=== PATIENT | female | born 1980 | race Caucasian/White ===

== ENCOUNTER 2020-08-28 12:15 | Inpatient (IN) | payer OTHER ==
[~2020-08-28] VITALS: Ht 154.9 cm; Wt 83.9 kg
[2020-08-28] MEDS ORDERED: AVAPRO300 MG PO (17:42)
[2020-08-30] MEDS ORDERED: FUSION PLUS CA1 EACH (08:13)
== END 2020-08-31 17:39 | disposition home or self-care (01) | DRG 741 ==
LOC: O/R 08-29 06:15 → SURH 08-29 10:00 → OB/GYN 08-29 23:33
PROVIDERS: ADMIT Specialist; ATTEND Specialist
PROC: 0UT20ZZ Resection of Bilateral Ovaries, Open Approach (ICD-10-PCS; 2020-08-29)
PROC: 0UT70ZZ Resection of Bilateral Fallopian Tubes, Open Approach (ICD-10-PCS; 2020-08-29)
PROC: 07BC0ZZ Excision of Pelvis Lymphatic, Open Approach (ICD-10-PCS; 2020-08-29)
PROC: 0DNW0ZZ Release Peritoneum, Open Approach (ICD-10-PCS; 2020-08-29)
PROC: 0UT90ZZ Resection of Uterus, Open Approach (ICD-10-PCS; principal; 2020-08-29 10:00)
DX: C54.1 Malignant neoplasm of endometrium (principal); N80.0 Endometriosis of uterus; N83.292 Other ovarian cyst, left side; N83.291 Other ovarian cyst, right side; N83.02 Follicular cyst of left ovary; N83.01 Follicular cyst of right ovary; Z20.822 Contact with and (suspected) exposure to COVID-19